=== PATIENT | female | born 1940 | race Caucasian/White ===

== ENCOUNTER 2016-12-19 10:13 | Outpatient (CLI) | payer MEDICARE, OTHER ==
[2016-09-06 15:20] VITALS: BP 140/68
== END 2016-12-19 10:23 ==
LOC: POD 10:13
PROVIDERS: ATTEND Podiatrist Public Medicine
DX: B35.1 Tinea unguium (principal); L60.0 Ingrowing nail; M79.674 Pain in right toe(s); M79.675 Pain in left toe(s)
CPT/HCPCS: 11721; G0463

== ENCOUNTER 2017-01-22 14:44 | Outpatient (CLI) | payer MEDICARE, OTHER ==
[2016-09-06 15:20] VITALS: BP 140/68
== END 2017-01-22 14:46 ==
LOC: CARD 14:44
PROVIDERS: ATTEND Internal Medicine Cardiovascular Disease
DX: I35.0 Nonrheumatic aortic (valve) stenosis (principal)
CPT/HCPCS: G0463

== ENCOUNTER 2017-02-26 11:17 | Outpatient (CLI) | payer MEDICARE, OTHER ==
[2016-09-06 15:20] VITALS: BP 140/68
== END 2017-02-26 11:18 ==
LOC: CARD 11:17
PROVIDERS: ATTEND Internal Medicine Cardiovascular Disease
DX: I35.0 Nonrheumatic aortic (valve) stenosis (principal)
CPT/HCPCS: G0463

== ENCOUNTER 2017-04-17 10:26 | Outpatient (CLI) | payer MEDICARE, OTHER ==
[2016-09-06 15:20] VITALS: BP 140/68
== END 2017-04-17 10:27 ==
LOC: POD 10:26
PROVIDERS: ATTEND Podiatrist Public Medicine
DX: B35.1 Tinea unguium (principal); L60.0 Ingrowing nail; M79.674 Pain in right toe(s); M79.675 Pain in left toe(s)
CPT/HCPCS: 11721; G0463

== ENCOUNTER 2017-09-27 12:34 | Outpatient (CLI) | payer MEDICARE, OTHER ==
[2016-09-06 15:20] VITALS: BP 140/68
[2017-09-27 13:00] LABS: BASOPHILS % 0.6 (0.0-1.5); EOSINOPHILS % 3.7 % (0.0-6.8); MEAN CORPUSCULAR HEMOGLOBIN 27.7 pg (28.0-34.0); MEAN CORPUSCULAR VOLUME 86.4 fl (80.0-100.0); MONOCYTES % 5.3 % (0.0-11.0); NEUTROPHILS # 4.2 # k/uL (1.4-7.7)
[2017-09-27 13:07] LABS: eGFR (African) > 60; eGFR (Non-African) > 60
== END 2017-09-27 12:35 ==
LOC: LAB 12:34
PROVIDERS: ATTEND Family Medicine
DX: E03.9 Hypothyroidism, unspecified (principal); I10 Essential (primary) hypertension; E78.00 Pure hypercholesterolemia, unspecified; E55.9 Vitamin D deficiency, unspecified
CPT/HCPCS: 36415; 80053; 80061; 82306; 84443; 85025

== ENCOUNTER 2018-01-21 14:09 | Outpatient (CLI) | payer MEDICARE, OTHER ==
[2016-09-06 15:20] VITALS: BP 140/68
== END 2018-01-21 14:10 ==
LOC: CARD 14:09
PROVIDERS: ATTEND Internal Medicine Cardiovascular Disease
DX: I35.0 Nonrheumatic aortic (valve) stenosis (principal); I10 Essential (primary) hypertension; E78.5 Hyperlipidemia, unspecified
CPT/HCPCS: G0463

== ENCOUNTER 2018-03-11 | Outpatient (CLI) | payer MEDICARE, OTHER | END 2018-03-11 12:14 | CPT/HCPCS: G0463 ==

== ENCOUNTER 2018-03-12 10:27 | Outpatient (CLI) | payer MEDICARE, OTHER ==
[2016-09-06 15:20] VITALS: BP 140/68
== END 2018-03-12 10:30 ==
LOC: LAB 10:27
PROVIDERS: ATTEND Internal Medicine Cardiovascular Disease
DX: I35.0 Nonrheumatic aortic (valve) stenosis (principal)
CPT/HCPCS: 36415; 84443

== ENCOUNTER 2018-07-22 14:21 | Outpatient (CLI) | payer MEDICARE, OTHER ==
[2016-09-06 15:20] VITALS: BP 140/68
== END 2018-07-22 14:23 ==
LOC: CARD 14:21
PROVIDERS: ATTEND Internal Medicine Cardiovascular Disease
DX: I35.0 Nonrheumatic aortic (valve) stenosis (principal); I10 Essential (primary) hypertension; E78.5 Hyperlipidemia, unspecified
CPT/HCPCS: G0463

== ENCOUNTER 2018-08-30 19:57 | Observation (INO) | payer MEDICARE, OTHER ==
[2018-08-30] MEDS ORDERED: 0.9 % SODIUM CHLORIDE 250 ML IV.SOLN IV STA (20:30)
--- NOTE | 2018-08-30 20:35 | ED Physician Documentation ---
General Adult - HPI Stated Complaint: Dizziness/Sweats/Nausea Chief Complaint: Dizziness Additional Information: intro self as [employer]. Pt presents to the ED via POV c/o weakness, dizziness upon standing, unsteady gait, dyspnea with exertion, Chills, nausea, and frequent [place] wel movements that are mildly loose x 2 days. pt reports she has not taken her medication today. Pt has a Hx of HTN and is concerned that her BP is elevated. Pt reports not having any food or much liquid today. pt lives at home and is unable to care for self with current illness. Pt has a Hx of AL and aortic stenosis, pt is followed by Dr Alvarez at [facility]. PCP is Dr Arroyo. Onset: days ago (2) Timing: still present Severity: moderate - ROS CONST: sweating, weakness, chills. denies: fever EYES/ENT: none CVS/RESP: none, shortness of breath (with exertion). denies: cough GI/: vomiting, nausea. denies: abdominal pain, problems urinating, diarrhea, black stools (no melena or hematemesis) MS/SKIN/LYMPH: none NEURO/PSYCH: dizziness (upon standing ), difficulty walking. denies: headache - PAST HX Past History: AMI Surgeries/Procedures: hysterectomy Allergies/Adverse Reactions: Allergies Allergy/AdvReac Type Severity Reaction Status Date / Time No Known Allergies Allergy Verified 08/30/18 20:15 Home Medications: Ambulatory Orders Medication Instructions Recorded Acetaminophen [Tylenol Extra 500 mg PO Q6 PRN 08/28/16 Strength] Aspirin [Adult Low Dose Aspirin EC] 81 mg PO DAILY 08/28/16 Atorvastatin Calcium 40 mg PO HS 08/28/16 Quetiapine Fumarate [Seroquel] 100 mg PO BID 08/28/16 Alendronate Sodium [Fosamax] 10 mg PO D 08/30/18 Levothyroxine Sodium [Synthroid] 100 mcg PO D 08/30/18 Lisinopril 5 mg PO D 08/30/18 Omeprazole 40 mg PO D 08/30/18 amLODIPine BESYLATE [Norvasc] 10 mg PO D 08/30/18 - SOCIAL HX Smoking History: non-smoker - FAMILY HX Family History: No - VITAL SIGNS Vital Signs: Vital Signs Temp Pulse Resp BP Pulse Ox 98.4 F 82 16 169/96 98 08/30/18 19:58 08/30/18 19:58 08/30/18 19:58 08/30/18 19:58 08/30/18 19:58 - REVIEWED ASSESSMENTS Nursing Assessment Reviewed: Yes Vitals Reviewed: Yes Progress - Results/Orders Results/Orders: AP chest Clinical history: Dizziness and shortness of breath. Near syncope. Findings: Examination of the chest single AP upright view demonstrates the lungs to be hyperinflated. The cardiac silhouette is enlarged and the aorta is atherosclerotic. Monitor leads superimpose the chest. Impression: 1. Emphysema. 2. Cardiomegaly and aortic atherosclerosis. Electronically signed on Aug 30, 2018 9:19:06 PM CDT by: Artur Acevedo - EKG/XRAY/CT EKG: NSR (Rate 63. no ectopy. interp by me. ), no ST T wave changes, unchanged from ([id number]) - Consult/PCP Time Called: 22:20 Consult/PCP: MONTERO Consult Reason/Comments: Admission to observation. agrees with plan ED Results Lab/Radiology - Orders Orders: ED Orders Category Date Time Status Continuous EKG monitoring Q30M Care 08/30/18 20:26 Ordered Continuous Pulse Oximetry Q30M Care 08/30/18 20:[address] IV Lock 1T Care 08/30/18 20:26 Ordered CHEST 1VIEW [RAD] Stat Exams 08/30/18 Ordered CBC/PLATELET/DIFF Routine Lab 08/30/18 20:26 Ordered CMP Routine Lab 08/30/18 20:26 Ordered TROPONIN I (cTnI) Stat Lab 08/30/18 20:26 Ordered 0.9 % Sodium Chloride [Sodium Chloride] Med 08/30/18 20:30 Stat 500 ml IV 1T STA EKG WITH COMPARISON Stat Ther 08/30/18 Ordered General Adult Physical Exam - PHYSICAL EXAM GENERAL APPEARANCE: no distress EENT: eye inspection normal, ENT inspection normal, pharynx normal, dry mucous membranes. No: pharyngeal erythema, abnormal TM NECK: normal inspection. No: lymphadenopathy RESPIRATORY: no resp distress, breath sounds normal. No: wheezes, rales, rhonchi (diminished) CVS: reg rate & rhythm, murmur (systolic grade III murmur) ABDOMEN: soft, normal bowel sounds, no distension, non-tender. No: tenderness, guarding BACK: normal inspection SKIN: warm/dry EXTREMITIES: non-tender, normal range of motion, no evidence of injury, no edema NEURO: oriented X3, CN's nml as tested, motor nml, sensation nml, mood/affect nml, cognition normal Discharge Clincal Impression: Dehydration, Gastroenteritis Condition: Good Disposition: ADMITTED INPATIENT Decision to Admit: [id number] Date of Decison to Admit: 08/30/18 Decision Time: 22:25
[2018-08-30] MEDS ORDERED: 0.9 % SODIUM CHLORIDE 1,000 ML IV ONE (20:58)
[2018-08-30 21:09] LABS: eGFR (Non-African) > 60
--- NOTE | 2018-08-30 21:42 | Diagnostic Imaging Report ---
MYRIAM FISCHER [facility] [address] [facility].[address] [id number] Report Submission Date: Aug 30, 2018 9:19:06 PM CDT Patient Study Name: ASHTYN LIU Date: Aug 30, 2018 8:37:39 PM CDT Modality Type: DX Gender: F Description: CHEST : 36 Institution: [facility] Physician: MYRIAM FISCHER AP chest Clinical history: Dizziness and shortness of breath. Near syncope. Findings: Examination of the chest single AP upright view demonstrates the lungs to be hyperinflated. The cardiac silhouette is enlarged and the aorta is atherosclerotic. Monitor leads superimpose the chest. Impression: 1. Emphysema. 2. Cardiomegaly and aortic atherosclerosis. Electronically signed on Aug 30, 2018 9:19:06 PM CDT by: Artur MORAN
[2018-08-30] MEDS ORDERED: ACETAMINOPHEN 500 MG TABLET PO PRN (22:37)
[2018-08-30] MEDS: QUEtiapine FUMARATE 25 MG TABLET PO SCH (23:30)
[2018-08-30] MEDS: ENOXAPARIN SODIUM 30 MG/0.3 ML DISP.SYRIN SQ SCH (23:30)
[2018-08-31] MEDS: 0.9 % SODIUM CHLORIDE 1,000 ML IV SCH ×2 (00:29→16:06)
[2018-08-31 01:00] VITALS: BMI 17.8
[2018-08-31] MEDS: PANTOPRAZOLE SODIUM 40 MG TABLET PO SCH (06:38)
[2018-08-31] MEDS: LEVOTHYROXINE SODIUM 100 MCG TABLET PO SCH ×2 (06:39→12:05)
[2018-08-31 07:32] LABS: MCH. 27.6; MCV 87.1
[2018-08-31 07:33] LABS: PLATELET COUNT 210
[2018-08-31 07:36] LABS: TROPONIN T <0.01
[2018-08-31 08:01] LABS: eGFR (Non-African) > 60
[2018-08-31] MEDS: ASPIRIN EC 81 MG TABLET.DR PO SCH (08:26)
[2018-08-31] MEDS: QUEtiapine FUMARATE 25 MG TABLET PO SCH ×2 (08:29→19:27)
[2018-08-31 09:53] LABS: BASO % 0.6 % (0.0-1.5); LYMPH ABS # 1.56 thou/uL (0.60-4.00); MCH. 27.3 pg (28.0-34.0); MCV 84.6 fL (80.0-100.0); MONOCYTE % 7.7 % (0.0-11.0); MONOCYTE ABS # 0.41 thou/uL (0.00-0.90); PLATELET COUNT 192 thou/uL (130-400)
[2018-08-31] MEDS: MECLIZINE HCL 25 MG TABLET PO SCH (19:26)
[2018-08-31] MEDS: ENOXAPARIN SODIUM 30 MG/0.3 ML DISP.SYRIN SQ SCH (23:05)
[2018-09-01] MEDS: MECLIZINE HCL 25 MG TABLET PO SCH ×2 (00:25→06:09)
[2018-09-01] MEDS: 0.9 % SODIUM CHLORIDE 1,000 ML IV SCH (01:06)
[2018-09-01] MEDS: PANTOPRAZOLE SODIUM 40 MG TABLET PO SCH (06:09)
[2018-09-01] MEDS: LEVOTHYROXINE SODIUM 100 MCG TABLET PO SCH (08:28)
[2018-09-01] MEDS: QUEtiapine FUMARATE 25 MG TABLET PO SCH (08:28)
[2018-09-01] MEDS: ASPIRIN EC 81 MG TABLET.DR PO SCH (08:28)
[2018-09-01 12:03] VITALS: BP 130/70
--- NOTE | 2018-09-16 20:58 | Discharge Summary ---
Discharge Summary - Discharge Sumary History of Present Illness: Pt presents to the ED via POV c/o weakness, dizziness upon standing, unsteady gait, dyspnea with exertion, Chills, nausea, and frequent Bowel movements that are mildly loose x 2 days. pt reports she has not taken her medication today. Pt has a Hx of HTN and is concerned that her BP is elevated. Pt reports not having any food or much liquid today. pt lives at home and is unable to care for self with current illness. Condition at Discharge: Stable Home Medications: Ambulatory Orders Medication Instructions Recorded Acetaminophen [Tylenol Extra 500 mg PO Q6 PRN 08/28/16 Strength] Aspirin [Adult Low Dose Aspirin EC] 81 mg PO DAILY 08/28/16 Atorvastatin Calcium 40 mg PO HS 08/28/16 Quetiapine Fumarate [Seroquel] 100 mg PO BID 08/28/16 Alendronate Sodium [Fosamax] 10 mg PO D 08/30/18 Levothyroxine Sodium [Synthroid] 100 mcg PO D 08/30/18 Lisinopril 5 mg PO D 08/30/18 Omeprazole 40 mg PO D 08/30/18 amLODIPine BESYLATE [Norvasc] 10 mg PO D 08/30/18 Meclizine HCl 12.5 mg PO QID PRN #20 tablet 09/01/18 Consultations this Visit: None Procedures this Visit: None Allergies/Adverse Reactions: Allergies Allergy/AdvReac Type Severity Reaction Status Date / Time No Known Allergies Allergy Verified 08/30/18 20:15 Discharge Summary: Patient was started on IV fluids. Patient elevated BUN return back to within normal range. Patient did appear to be having some possible vertical that may be causing some of her nausea vomiting. Patient was started on meclizine with some improvement with this. Patient was continued on her home medications. At the time to discharge was felt that the patient was stable enough that she could be discharged home. - Final Diagnosis (1) Dehydration Problems: improved with fluids (2) Gastroenteritis Problems: improved (3) Hypertension Problems: stable on home meds
--- NOTE | 2018-09-16 21:04 | Inpatient Progress Note ---
Subjective - Required Recertification Statement I anticipate X number of days because-include discharge plan: 1 - Review of Systems Subjective: Patient states that she is doing some better. Patient continued to complain of some nausea if she gets up and moves around. Some of her nausea appeared to be related to possible benign positional paroxysmal vertigo. Patient denies any ringing in ears. Patient does have decreased hearing acuity but it appeared to be stable. Patient is not having diarrhea or fever. Cardiovascular: Denies: Chest Pain Gastrointestinal: Nausea. Denies: Vomiting, Abdominal Pain, Diarrhea, Constipation, Melena, Hematochezia Objective - Exam Vitals and I&O: Vital Signs Temp 97.2 F L 09/01/18 10:00 Pulse 70 09/01/18 10:00 Resp 18 09/01/18 10:00 BP 130/70 09/01/18 10:00 Pulse Ox 97 09/01/18 10:00 General: Alert, Oriented to Person, Oriented to Place, Oriented to Time, Cooperative, No acute distress, Average Body Habits HEENT: Atraumatic Neck: Supple Lungs: Clear to auscultation, Normal air movement, Speaks full Sentences Cardiovascular: Regular rate, Normal S1, Normal S2, No murmurs Abdomen: Normal bowel sounds, Soft, No tenderness, No hepatospenomegaly, No masses Skin: Normal, [place], Warm, Dry Psych/Mental Status: Mental status NL, Appropriate Affect, Intact Judgment - Results Results: Laboratory Results WBC Comment 5.26 thou/uL (4.00-12.00) 08/31/18 07:00 RBC 4.43 mil/uL (3.90-5.20) 08/31/18 07:00 Hemoglobin (Send Out) 12.1 g/dL (11.5-16.0) 08/31/18 07:00 Hct (Send Out) 37.5 % (34.5-46.5) 08/31/18 07:00 MCV (Send Out) 84.6 fL (80.0-100.0) 08/31/18 07:00 MCH 27.3 pg (28.0-34.0) L 08/31/18 07:00 MCHC (Send Out) 32.3 g/dL (30.0-36.0) 08/31/18 07:00 RDW Coeff of Selena 13.4 % (11.3-14.7) 08/31/18 07:00 Plt Count 192 thou/uL (130-400) 08/31/18 07:00 Absolute Lymphs (auto) 1.56 thou/uL (0.60-4.00) 08/31/18 07:00 Absolute Monos (auto) 0.41 thou/uL (0.00-0.90) 08/31/18 07:00 Absolute Basos (auto) 0.03 thou/uL (0.00-0.50) 08/31/18 07:00 CBC Comment Bilingual Executive Assistant 08/30/18 20:50 Neutrophils % 56.0 % (39.0-79.0) 08/31/18 07:00 Absolute Neutrophils 2.95 thou/uL (1.50-7.70) 08/31/18 07:00 Lymphocytes 29.7 % (16.0-50.0) 08/31/18 07:00 Monocytes 7.7 % (0.0-11.0) 08/31/18 07:00 Absolute Eosinophils 0.32 thou/uL (0.00-0.60) 08/31/18 07:00 Basophilia % 0.6 % (0.0-1.5) 08/31/18 07:00 Eosinophil Count 6.0 % (0.0-6.8) 08/31/18 07:00 Sodium 136 mmol/L (136-145) 08/31/18 06:00 Potassium 3.5 mmol/L (3.5-5.1) 08/31/18 06:00 Chloride 105 mmol/L (98-107) 08/31/18 06:00 Carbon Dioxide 26 mmol/L (22-30) 08/31/18 06:00 BUN 15 mg/dL (7-17) 08/31/18 06:00 Creatinine 0.60 mg/dL (0.52-1.04) 08/31/18 06:00 Estimated Creat Clear 70 08/31/18 06:00 Est GFR ( Amer) > 60 (60-) 08/31/18 06:00 Est GFR (Non-Af Amer) > 60 (60-) 08/31/18 06:00 Glucose 72 mg/dL (74-106) L 08/31/18 06:00 Calcium 8.4 mg/dL (8.4-10.2) 08/31/18 06:00 Total Bilirubin 0.5 mg/dL (0.2-1.3) 08/31/18 06:00 AST 32 U/L (15-46) 08/31/18 06:00 ALT 32 U/L (13-69) 08/31/18 06:00 Alkaline Phosphatase 118 U/L (38-126) 08/31/18 06:00 Troponin T <0.01 08/30/18 20:50 Total Protein 6.6 g/dL (6.3-8.2) 08/31/18 06:00 Albumin 3.6 g/dL (3.5-5.0) 08/31/18 06:00 Assessment/Plan - Assessment/Plan (1) Dehydration Status: Acute Assessment: improved (2) Gastroenteritis Status: Acute Assessment: improved (3) Hypertension Status: Chronic Qualifiers: Hypertension type: essential hypertension Qualified Code(s): I10 - Essential (primary) hypertension Assessment: stable (4) Dizziness Status: Acute Assessment: Patient will be started on meclizine diseases will help some with her symptoms.
== END 2018-09-01 11:40 | disposition home or self-care (01) ==
LOC: ED 19:57 → SOUTH 22:29
PROVIDERS: ADMIT Family Medicine; ATTEND Family Medicine
DX: E86.0 Dehydration (principal); K52.9 Noninfective gastroenteritis and colitis, unspecified; I10 Essential (primary) hypertension; R42 Dizziness and giddiness; J43.9 Emphysema, unspecified; I70.0 Atherosclerosis of aorta; I25.2 Old myocardial infarction
CPT/HCPCS: 71045; 80053; 84484; 85025; 93005; G0378; J1650; J7030; 96360; 96361; 99217; 99225; S1016

== ENCOUNTER 2019-09-09 10:29 | Outpatient (CLI) | payer MEDICARE, OTHER ==
[2019-09-09 12:07] LABS: TSH 1.81 mIU/l (0.465-4.685)
== END 2019-09-09 10:34 | disposition home or self-care (01) ==
LOC: LAB 10:29
PROVIDERS: ATTEND Family Medicine
DX: E03.9 Hypothyroidism, unspecified (principal)
CPT/HCPCS: 36415; 84439; 84443; 84481